=== PATIENT | female | born 1995 | race Caucasian/White ===

== ENCOUNTER 2018-04-12 11:30 | Emergency (ER) | payer MEDICAID ==
[2018-04-12 13:27] LABS: Bacteria,Urine 4+ /HPF (Negative); Bilirubin,Urine NEG (Negative); Blood,Urine NEG (Negative); Color,Urine Yellow (Yellow); Mucus,Urine FEW /HPF; Protein,Urine <15 mg/dL mg/dL (Negative); Urobilinogen,Urine < 2.0 mg/dL (<2.0)
[2018-04-12 13:29] LABS: HCG Qualitative,Urine Negative (Negative)
--- NOTE | 2018-04-12 14:25 | Emergency Department Report ---
Chief Complaint: Abdominal Pain Stated Complaint: BACK PAIN/VAGINAL PAIN Time Seen by Provider: 04/12/18 14:02 - HPI History of Present Illness: 22-year-old female presents to the emergency department with complaint of a one-week history of white thick vaginal discharge. She also has a few days of some right flank and mid back pain. She does have a history of previous kidney stones and "kidney infections" she denies any fever, nausea, vomiting. She has not taken anything for her symptoms prior presentation. She does not have a primary care physician. - ROS Review of Systems: Positive for right flank and back pain, vaginal discharge Negative for fever, nausea, vomiting - Exam Vital Signs: Vital Signs 04/12/18 11:32 Temperature 99.0 F Pulse Rate 66 Respiratory 14 Rate Blood Pressure 102/74 O2 Sat by Pulse 100 Oximetry Physical Exam: She has some right-sided CVA tenderness to palpation. Abdomen is soft and nontoxic. Heart and lung sounds are normal to auscultation. MSE screening note: Focused history and physical exam performed. Due to findings the following was ordered: I have ordered a CBC, CMP and a CT scan of the abdomen and pelvis without contrast. ED Disposition for MSE Condition: Stable Instructions: Abdominal Pain (ED) Referrals: PRIMARY CARE [Primary Care Provider] - 3-5 Days
--- NOTE | 2018-04-12 16:50 | Emergency Department Report ---
ED Female HPI - General Chief complaint: Abdominal Pain Stated complaint: BACK PAIN/VAGINAL PAIN Time Seen by Provider: 04/12/18 14:02 Source: patient Mode of arrival: Ambulatory Limitations: No Limitations - History of Present Illness Initial comments: This is a 22-year-old female presents with vaginal discharge for 2 days. Past medical history of kidney stones and kidney infections. Patient reports discharge as foul smelling and causing vaginal itching. Patient states she caught her boyfriend cheating on her and now concerned of possibly have an sexually transmitted disease. She is also complaining of right flank pain that is worse when she is carrying objects or bending over. She has not taken anything for symptom relief. She does not have a primary care physician. Denies dysuria, nausea and vomiting, vaginal bleeding, suprapubic pain, and fever. MD Complaint: vaginal discharge Onset/Timin -: days(s) Location: labia Radiation: non-radiating Severity: mild Severity scale (0 -10): 3 Improves with: none Are you Now?: No Last Menstrual Period: 03/20/18 EDC: 12/25/18 Associated Symptoms: vaginal discharge. denies: vaginal bleeding, abdominal pain, nausea/vomiting, fever/chills, headaches, loss of appetite, dysuria, hematuria, rash, seizure, shortness of breath, syncope, weakness - Related Data Sexually active: Yes : 4 Para: 4 A: 0 Home Medications Medication Instructions Recorded Confirmed Last Taken Ferrous Sulfate [Feosol] 325 mg PO QDAY 09/02/16 09/02/16 2 Days Ago ~08/31/16 Pnv,Calcium 72/Iron/Folic Acid 1 each PO DAILY 09/02/16 09/02/16 2 Days Ago [Pnv Plus Multivit Tab] ~08/31/16 Previous Rx's Medication Instructions Recorded Last Taken Type Docusate Sodium [Colace] 100 mg PO BID PRN #60 capsule 09/02/16 Unknown Rx Ferrous Sulfate [Feosol 325 MG tab] 325 mg PO BID #60 tablet 09/02/16 Unknown Rx Ibuprofen [Motrin] 800 mg PO Q8HR PRN #60 tablet 09/02/16 Unknown Rx Oxycodone HCl/Acetaminophen 1 each PO Q6HR PRN #45 tablet 09/02/16 Unknown Rx [Percocet 7.5/325 mg] metroNIDAZOLE [Metronidazole] 500 mg PO BID #14 tablet 04/12/18 Unknown Rx Allergies Allergy/AdvReac Type Severity Reaction Status Date / Time No Known Allergies Allergy Verified 08/31/16 12:25 ED Review of Systems ROS: Stated complaint: BACK PAIN/VAGINAL PAIN Other details as noted in HPI Constitutional: denies: chills, fever Respiratory: denies: cough, shortness of breath, wheezing Cardiovascular: denies: chest pain, palpitations Gastrointestinal: denies: abdominal pain, nausea, vomiting, diarrhea Genitourinary: discharge. denies: urgency, dysuria, frequency, hematuria, abnormal menses, dyspareunia Musculoskeletal: back pain (right flank pain). denies: joint swelling, arthralgia Skin: denies: rash, lesions Neurological: denies: headache, weakness, numbness, paresthesias Psychiatric: denies: anxiety, depression ED Past Medical Hx - Past Medical History Previous Medical History?: No Hx Hypertension: No Hx Congestive Heart Failure: No Hx Diabetes: No Hx Deep Vein Thrombosis: No Hx Renal Disease: No Hx Sickle Cell Disease: No Hx Seizures: No Hx Asthma: No Hx COPD: No Hx HIV: No - Surgical History Past Surgical History?: Yes Additional Surgical History: x 4 - Social History Smoking Status: Never Smoker Substance Use Type: None - Medications Home Medications: Home Medications Medication Instructions Recorded Confirmed Last Taken Type Docusate Sodium [Colace] 100 mg PO BID PRN #60 capsule 09/02/16 Unknown Rx Ferrous Sulfate [Feosol 325 MG tab] 325 mg PO BID #60 tablet 09/02/16 Unknown Rx Ferrous Sulfate [Feosol] 325 mg PO QDAY 09/02/16 09/02/16 2 Days Ago History ~08/31/16 Ibuprofen [Motrin] 800 mg PO Q8HR PRN #60 tablet 09/02/16 Unknown Rx Oxycodone HCl/Acetaminophen 1 each PO Q6HR PRN #45 tablet 09/02/16 Unknown Rx [Percocet 7.5/325 mg] Pnv,Calcium 72/Iron/Folic Acid 1 each PO DAILY 09/02/16 09/02/16 2 Days Ago History [Pnv Plus Multivit Tab] ~08/31/16 metroNIDAZOLE [Metronidazole] 500 mg PO BID #14 tablet 04/12/18 Unknown Rx ED Physical Exam - General Limitations: No Limitations General appearance: alert, in no apparent distress - Respiratory Respiratory exam: Present: normal lung sounds bilaterally. Absent: respiratory distress - Cardiovascular Cardiovascular Exam: Present: regular rate, normal rhythm. Absent: systolic murmur, diastolic murmur, rubs, gallop - GI/Abdominal GI/Abdominal exam: Present: soft, normal bowel sounds. Absent: organomegaly, mass - External exam: Present: normal external exam Speculum exam: Present: vaginal discharge (wrist white thin discharge). Absent : erythema, cervical discharge, vaginal bleeding, foreign body, tissue Bi-manual exam: Present: normal bi-manual exam - Back Exam Back exam: Present: full ROM, CVA tenderness (R). Absent: CVA tenderness (L), muscle spasm, paraspinal tenderness, vertebral tenderness, rash noted - Neurological Exam Neurological exam: Present: alert, oriented X3 - Psychiatric Psychiatric exam: Present: normal affect, normal mood - Skin Skin exam: Present: warm, dry, intact, normal color. Absent: rash ED Course Vital Signs 04/12/18 04/12/18 11:32 18:00 Temperature 99.0 F 98.2 F Pulse Rate 66 74 Respiratory 14 18 Rate Blood Pressure 102/74 Blood Pressure 124/72 [Right] O2 Sat by Pulse 100 98 Oximetry ED Medical Decision Making - Lab Data Result diagrams: 04/12/18 17:15 04/12/18 17:15 - Radiology Data Radiology results: report reviewed EXAM: CT ABDOMEN PELVIS WO CON HISTORY: right flank pain TECHNIQUE: Axial helical imaging through the abdomen and pelvis with sagittal and coronal reformatted images obtained. Comparison: None FINDINGS: The lung bases are without infiltrate, pneumothorax or pleural fluid collection. The heart is normal size. The liver, spleen, pancreas and gallbladder are unremarkable in appearance. There is a punctate nonobstructing stone in the left renal pelvis. There is no evidence of hydronephrosis nor hydroureter. The bowel is normal caliber. The appendix is normal in appearance. There is a small amount of free fluid in the pelvis. The Hounsfield units are nonspecific in appearance. There is no evidence of pneumoperitoneum. The abdominal aorta is normal caliber. There is no evidence of pathologic intra-abdominal adenopathy by CT size criteria. The urinary bladder is decompressed which limits evaluation. An intrauterine device is demonstrated in the uterus. The device is position in unusual orientation and directed predominantly laterally rather than cranial caudally. There is a low-attenuation approximately 4 centimeter rounded structure in the right adnexa. Possible ovarian cyst. The bony structures are unremarkable in appearance. There is evidence of a previous Pfannenstiel type incision. IMPRESSION: 1. Punctate nonobstructing stone left renal pelvis. No evidence of hydronephrosis nor hydroureter. 2. Approximately 4 centimeter rounded structure low-attenuation in the right adnexa. Possible ovarian cyst. Pelvic ultrasound may be helpful for further evaluation. 3. Small amount of free fluid in the pelvis. In the proper clinical setting a ruptured ovarian cyst would need to be considered. 4. Intrauterine device within the uterus with an unusual orientation and is positioned laterally. 5. Evidence of previous Pfannenstiel type incision. - Medical Decision Making This is a 22-year-old female who presents with vaginal discharge and right flank pain for 2 days. Patient was examined by me. Vitals are stable and in no acute distress. CBC, CMP, urine hCG, urinalysis, CT of abdomen and obtained. Wet prep and gonorrhea and chlamydia obtained via pelvic exam. Patient is to follow-up in 2-5 days for results of gonorrhea and chlamydia which are pending. Wet prep positive for occlusive illness, negative Trichomonas and yeast. All other labs are unremarkable. CT of abdomen dictated by radiologist. 1. Punctate nonobstructing stone left renal pelvis. No evidence of hydronephrosis nor hydroureter. 2. Approximately 4 centimeter rounded structure low-attenuation in the right adnexa. Possible ovarian cyst. Pelvic ultrasound may be helpful for further evaluation. 3. Small amount of free fluid in the pelvis. In the proper clinical setting a ruptured ovarian cyst would need to be considered. 4. Intrauterine device within the uterus with an unusual orientation and is positioned laterally. 5. Evidence of previous Pfannenstiel type incision. Patient informed of results. Empirically treated with Rocephin 250 mg IM and azithromycin 1 g by mouth for STD exposure. Referral to urology for management of nonobstructing renal stones. Encouraged to increase fluid intake and strain urine. Start metronidazole 500 milligrams by mouth twice a day 7 days for bacterial vaginitis. Discharged home in stable condition. Discussed prevention options. F/U with PCP or Health Department. Critical care attestation.: If time is entered above; I have spent that time in minutes in the direct care of this critically ill patient, excluding procedure time. ED Disposition Clinical Impression: Vaginal discharge, Right flank pain, Exposure to STD, Renal calculus, left Disposition: DC- TO HOME OR SELFCARE Is pt being admited?: No Does the pt Need Aspirin: No Condition: Stable Instructions: Sexually Transmitted Diseases (ED), Safe Sex (ED), Abdominal Pain (ED) Additional Instructions: Avoid drinking alcohol while taking antibiotics and for 24 hours after completion. Continue safe sexual intercourse. Follow up with Primary Care Provider or health department. Prescriptions: metroNIDAZOLE [Metronidazole] 500 mg PO BID #14 tablet Referrals: [facility] [Outside] - 3-5 Days [facility] [Outside] - 3-5 Days [facility] [Outside] - 3-5 Days [facility] [Provider Group] - 3-5 Days Forms: Work/School Release Form(ED) Time of Disposition: 17:47 Print Language: UKRAINIAN
--- NOTE | 2018-04-12 17:13 | Cat Scan Report ---
FINAL REPORT EXAM: CT ABDOMEN PELVIS WO CON HISTORY: right flank pain TECHNIQUE: Axial helical imaging through the abdomen and pelvis with sagittal and coronal reformatted images obtained. Comparison: None FINDINGS: The lung bases are without infiltrate, pneumothorax or pleural fluid collection. The heart is normal size. The liver, spleen, pancreas and gallbladder are unremarkable in appearance. There is a punctate nonobstructing stone in the left renal pelvis. There is no evidence of hydronephrosis nor hydroureter. The bowel is normal caliber. The appendix is normal in appearance. There is a small amount of free fluid in the pelvis. The Hounsfield units are nonspecific in appearance. There is no evidence of pneumoperitoneum. The abdominal aorta is normal caliber. There is no evidence of pathologic intra-abdominal adenopathy by CT size criteria. The urinary bladder is decompressed which limits evaluation. An intrauterine device is demonstrated in the uterus. The device is position in unusual orientation and directed predominantly laterally rather than cranial caudally. There is a low-attenuation approximately 4 centimeter rounded structure in the right adnexa. Possible ovarian cyst. The bony structures are unremarkable in appearance. There is evidence of a previous Pfannenstiel type incision. IMPRESSION: 1. Punctate nonobstructing stone left renal pelvis. No evidence of hydronephrosis nor hydroureter. 2. Approximately 4 centimeter rounded structure low-attenuation in the right adnexa. Possible ovarian cyst. Pelvic ultrasound may be helpful for further evaluation. 3. Small amount of free fluid in the pelvis. In the proper clinical setting a ruptured ovarian cyst would need to be considered. 4. Intrauterine device within the uterus with an unusual orientation and is positioned laterally. 5. Evidence of previous Pfannenstiel type incision.
[2018-04-12] MEDS ORDERED: ROCEPHIN IM ONE (17:45)
[2018-04-12] MEDS ORDERED: XYLOCAINE 1% MPF 5 mL INFILTRATI ONE (17:45)
[2018-04-12] MEDS ORDERED: ZITHROMAX PO ONE (17:45)
[2018-04-12 18:02] VITALS: BP 124/72
[2018-04-12 18:11] LABS: Alanine Aminotransferase 10 units/L (7-56); Albumin 4.7 g/dL (3.9-5); BUN/Creatinine Ratio 18; Blood Urea Nitrogen 7 mg/dL (7-17); Calcium 9.5 mg/dL (8.4-10.2); Hemolysis Index 46
[2018-04-12 18:32] LABS: Hematocrit 38.9 % (30.3-42.9); Mean Corpuscular HGB Conc 33 % (30-34); Mean Corpuscular Hemoglobin 29 pg (28-32); Mean Corpuscular Volume 86 fl (79-97); Platelet Count 283 K/mm3 (140-440); Red Blood Count 4.51 M/mm3 (3.65-5.03); Red Cell Distribution Width 15.5 % (13.2-15.2)
== END 2018-04-12 18:00 | disposition home or self-care (01) ==
LOC: ED 11:30
DX: N20.0 Calculus of kidney (principal); N89.8 Other specified noninflammatory disorders of vagina
CPT/HCPCS: 36415; 74176; 80053; 81001; 81025; 85025; 87210; 87591; 99284

== ENCOUNTER 2018-05-06 18:22 | Emergency (ER) | payer MEDICAID ==
[2018-05-06 18:33] VITALS: BP 113/76
[2018-05-06] MEDS ORDERED: TYLENOL PO ONE (20:47)
[2018-05-06] MEDS ORDERED: THERMAZENE 50 GRAM TP ONE ×2 (20:47→20:52)
[2018-05-06] MEDS ORDERED: TYLENOL ONE (20:49)
[2018-05-06] MEDS ORDERED: BOOSTRIX IM ONE ×2 (20:53→20:57)
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
== END 2018-05-06 22:50 | disposition home or self-care (01) ==
LOC: ED 18:22
DX: T23.211A Burn of second degree of right thumb (nail), initial encounter (principal); X10.2XXA Contact with fats and cooking oils, initial encounter; Y93.89 Activity, other specified; Y92.89 Other specified places as the place of occurrence of the external cause; Y99.8 Other external cause status
CPT/HCPCS: 90471; 90715

== ENCOUNTER 2019-05-31 08:26 | Emergency (ER) | payer MEDICAID ==
[2019-05-31 09:26] LABS: Basophils # (Auto) 0.1 K/mm3 (0.0-0.1); Basophils % (Auto) 0.8 % (0.0-1.8); Eosinophils # (Auto) 0.1 K/mm3 (0.0-0.4); Eosinophils % (Auto) 0.7 % (0.0-4.3); Hematocrit 38.6 % (30.3-42.9); Hemoglobin 12.6 gm/dl (10.1-14.3); Lymphocytes # (Auto) 1.7 K/mm3 (1.2-5.4); Lymphocytes % (Auto) 20.2 % (13.4-35.0); Mean Corpuscular HGB Conc 33 % (30-34); Mean Corpuscular Volume 87 fl (79-97); Monocytes # (Auto) 0.6 K/mm3 (0.0-0.8); Monocytes % (Auto) 7.7 % (0.0-7.3); Platelet Count 282 K/mm3 (140-440); Red Blood Count 4.45 M/mm3 (3.65-5.03); Red Cell Distribution Width 16.4 % (13.2-15.2)
[2019-05-31 09:36] LABS: Bacteria,Urine 2+ /HPF (Negative); Bilirubin,Urine NEG (Negative); Blood,Urine SM (Negative); Color,Urine Yellow (Yellow); Mucus,Urine FEW /HPF; Urobilinogen,Urine < 2.0 mg/dL (<2.0)
[2019-05-31 09:37] LABS: WBC,Urine > 182.0 /HPF (0.0-6.0)
[2019-05-31 09:42] LABS: BUN/Creatinine Ratio 24; Blood Urea Nitrogen 12 mg/dL (7-17); Calcium 9.3 mg/dL (8.4-10.2); Hemolysis Index 7
[2019-05-31 09:44] LABS: HCG Qualitative,Urine Negative (Negative)
--- NOTE | 2019-05-31 09:53 | Emergency Department Report ---
HPI - General Chief Complaint: Vaginal Bleeding Time Seen by Provider: 05/31/19 08:57 - HPI HPI: 23-year-old female presents to the emergency department with a complaint of a 2-3 week history of vaginal bleeding that goes between being moderate to heavy amounts. It is associated with nausea, dysuria. She denies any fever, vaginal discharge. The patient has an IUD in place but does not know what type and says that she otherwise has normal regular menstrual cycles. She has an [facility]PER[facility]OR through [place] who she has not seen regarding her symptoms or for about the past year. She otherwise denies any past medical history. She took one dose of AZO for her symptoms without any relief. No recent travel or sick contacts at home. ED Past Medical Hx - Past Medical History Previous Medical History?: No Hx Hypertension: No Hx Congestive Heart Failure: No Hx Diabetes: No Hx Deep Vein Thrombosis: No Hx Renal Disease: No Hx Sickle Cell Disease: No Hx Seizures: No Hx Asthma: No Hx COPD: No Hx HIV: No - Surgical History Past Surgical History?: No Additional Surgical History: x 4 - Social History Smoking Status: Never Smoker Substance Use Type: None - Medications Home Medications: Home Medications Medication Instructions Recorded Confirmed Last Taken Type Docusate Sodium [Colace] 100 mg PO BID PRN #60 capsule 09/02/16 Unknown Rx Ferrous Sulfate [Feosol 325 MG tab] 325 mg PO BID #60 tablet 09/02/16 Unknown Rx Ferrous Sulfate [Feosol] 325 mg PO QDAY 09/02/16 09/02/16 2 Days Ago History ~08/31/16 Ibuprofen [Motrin] 800 mg PO Q8HR PRN #60 tablet 09/02/16 Unknown Rx Oxycodone HCl/Acetaminophen 1 each PO Q6HR PRN #45 tablet 09/02/16 Unknown Rx [Percocet 7.5/325 mg] Pnv,Calcium 72/Iron/Folic Acid 1 each PO DAILY 09/02/16 09/02/16 2 Days Ago History [Pnv Plus Multivit Tab] ~08/31/16 metroNIDAZOLE [Metronidazole] 500 mg PO BID #14 tablet 04/12/18 Unknown Rx Cephalexin [Keflex] 500 mg PO TID #30 capsule 05/06/18 Unknown Rx SILVER sulfADIAZINE 50 GRAM 1 applicatio TP BID #1 tube 05/06/18 Unknown Rx [Thermazene 50 Gram] traMADol [Ultram] 50 mg PO Q6HR PRN #12 tablet 05/06/18 Unknown Rx cephALEXin [Keflex] 500 mg PO Q8HR #21 cap 05/31/19 Unknown Rx ED Review of Systems ROS: Stated complaint: VAGINAL BLEEDING 2WKS/PAIN Other details as noted in HPI Comment: All other systems reviewed and negative Constitutional: denies: chills, fever Gastrointestinal: nausea. denies: abdominal pain, vomiting Genitourinary: dysuria, abnormal menses. denies: discharge Musculoskeletal: back pain. denies: joint swelling Neurological: denies: numbness, paresthesias Physical Exam - Physical Exam Vital Signs: Vital Signs 05/31/19 08:54 Temperature 98 F Pulse Rate 63 Respiratory 16 Rate Blood Pressure 108/56 [Left] O2 Sat by Pulse 100 Oximetry Physical Exam: GENERAL: The patient is well-developed well-nourished. HENT: Normocephalic. Atraumatic. Patient has moist mucous membranes. EYES: Extraocular motions are intact. NECK: Supple. Trachea is midline. CHEST/LUNGS: Clear to auscultation. There is no respiratory distress noted. HEART/CARDIOVASCULAR: Regular. There is no tachycardia. There is no murmur. ABDOMEN: Abdomen is soft, nontender. Patient has normal bowel sounds. There is no abdominal distention. SKIN: Skin is warm and dry. NEURO: The patient is awake, alert, and oriented. The patient is cooperative. The patient has no focal neurologic deficits. Normal speech. MUSCULOSKELETAL: There is no tenderness or deformity. There is no limitation range of motion. There is no evidence of acute injury. ED Course Vital Signs 05/31/19 08:54 Temperature 98 F Pulse Rate 63 Respiratory 16 Rate Blood Pressure 108/56 [Left] O2 Sat by Pulse 100 Oximetry ED Medical Decision Making - Lab Data Result diagrams: 05/31/19 09:11 05/31/19 09:11 - Radiology Data Radiology results: report reviewed Pelvic ultrasound complete INDICATION: Pelvic pain for 3 weeks, abnormal vaginal bleeding Comparison: CT scan dated 04/12/2018 Findings: Uterus measures 5 cm in length and is anteflexed. The endometrial stripe measures 4 mm. There is an IUD within the endometrial cavity. The right ovary measures 1.7 cm and the left ovary measures 2.1 cm. Arterial flow is noted in the ovaries. There is no free fluid. There are no adnexal masses. IMPRESSION: Pelvic ultrasound is within normal limits. - Medical Decision Making Patient presents with a 2 to three-week history of vaginal bleeding and some pelvic pain. Labs are mostly unremarkable except for a urinalysis that shows a significant urinary tract infection. Vital signs stable including being afebrile. Started on antibiotics. Transvaginal ultrasound does not show any fi broids, malignancy, torsion, or any other acute process. Patient will be discharged home to follow up with [facility] regarding dysfunctional uterine bleeding and/or menorrhagia. She will return to the ER with any worsening of her symptoms or any acute distress. - Differential Diagnosis dysfunctional uterine bleeding, fibroids, UTI, , malignancy Critical Care Time: No Critical care attestation.: If time is entered above; I have spent that time in minutes in the direct care of this critically ill patient, excluding procedure time. ED Disposition Clinical Impression: Dysfunctional uterine bleeding UTI (urinary tract infection) Qualifiers: Urinary tract infection type: acute cystitis Hematuria presence: with hematuria Qualified Code(s): N30.01 - Acute cystitis with hematuria Disposition: DC- TO HOME OR SELFCARE Is pt being admited?: No Condition: Stable Instructions: Dysfunctional Uterine Bleeding (ED), Urinary Tract Infection in Women (ED), Menorrhagia (ED) Additional Instructions: Please follow-up with an SLOT SUPERVISOR in the next few days. Take the antibiotics as prescribed. Return to the emergency Department with any worsening of your symptoms or any acute distress. Prescriptions: cephALEXin [Keflex] 500 mg PO Q8HR #21 cap Referrals: [facility] [Provider Group] - 2-3 Days [facility] [Provider Group] - 2-3 Days Time of Disposition: 14:28
[2019-05-31] MEDS ORDERED: cephALEXin 500 MG CAP PO ONE (09:55)
--- NOTE | 2019-05-31 11:28 | Ultrasound Report ---
Pelvic ultrasound complete INDICATION: Pelvic pain for 3 weeks, abnormal vaginal bleeding Comparison: CT scan dated 04/12/2018 Findings: Uterus measures 5 cm in length and is anteflexed. The endometrial stripe measures 4 mm. There is an I UD within the endometrial cavity. The right ovary measures 1.7 cm and the left ovary measures 2.1 cm. Arterial flow is noted in the ovaries. There is no free fluid. There are no adnexal masses. IMPRESSION: Pelvic ultrasound is within normal limits. Signer Name: Fransico Hollis MD Signed: 05/31/2019 11:23 AM Workstation Name: [id number]
[2019-05-31 12:18] VITALS: BP 102/50
== END 2019-05-31 12:19 | disposition home or self-care (01) ==
LOC: ED 08:26
DX: N93.8 Other specified abnormal uterine and vaginal bleeding (principal); N39.0 Urinary tract infection, site not specified; Z79.1 Long term (current) use of non-steroidal anti-inflammatories (NSAID); Z79.899 Other long term (current) drug therapy
CPT/HCPCS: 36415; 80048; 81001; 81025; 85025; 93975; 99284

== ENCOUNTER 2021-02-03 14:56 | Emergency (ER) | payer MEDICAID ==
[2021-02-03 15:13] VITALS: BP 123/47
--- NOTE | 2021-02-03 15:20 | Event Note ---
ED Screening Note Date of service: 02/03/21 Time: 15:19 ED Screening Note: 25-year-old female patient (A1; LMP 12/23/2020) with history of kidney stones and pyelonephritis presents to the emergency department with complaints of lower abdominal pain and lower back pain for 2 weeks, worsening today. No preceding fall, trauma, or injury. Patient has not taken a test since her last menstrual cycle. No associated fever or vomiting. No vaginal bleeding. General: Awake, appropriately interactive, no acute distress. Neck: Supple. Full range of motion intact. Cardiovascular: Normal peripheral perfusion. Pulmonary: No respiratory distress. Patient is speaking normally without use of accessory muscles. Skin: No apparent rashes or lesions. Neurological: No facial asymmetry. Speech is clear. Follows commands. Patient is alert and oriented. Musculoskeletal: Moves all four extremities spontaneously with normal range of motion. Psych: Cooperative. Appropriate mood and affect. I have greeted and performed a focused rapid initial assessment of this patient. A comprehensive ED assessment and evaluation of the patient, analysis of all test results, and completion of the medical decision-making process will be conducted by additional ED providers. This initial assessment/diagnostic orders/clinical plan/treatment(s) is/are subject to change based on patients health status, clinical progression and re-assessment. Further treatment and workup at subsequent clinical provider's discretion. Patient/guardian urged not to elope from the ED as their condition may be serious if not clinically assessed and managed.
[2021-02-03 16:03] LABS: Basophils # (Auto) 0.1 K/mm3 (0.0-0.1); Basophils % (Auto) 0.8 % (0.0-1.8); Eosinophils # (Auto) 0.1 K/mm3 (0.0-0.4); Eosinophils % (Auto) 0.6 % (0.0-4.3); Hematocrit 35.6 % (30.3-42.9); Hemoglobin 12.1 gm/dl (10.1-14.3); Lymphocytes # (Auto) 2.1 K/mm3 (1.2-5.4); Lymphocytes % (Auto) 23.6 % (13.4-35.0); Mean Corpuscular HGB Conc 34 % (30-34); Mean Corpuscular Volume 92 fl (79-97); Monocytes # (Auto) 0.9 K/mm3 (0.0-0.8); Monocytes % (Auto) 10.5 % (0.0-7.3); Platelet Count 278 K/mm3 (140-440); Red Blood Count 3.88 M/mm3 (3.65-5.03); Red Cell Distribution Width 14.3 % (13.2-15.2)
--- NOTE | 2021-02-03 16:11 | Emergency Department Report ---
ED General Adult HPI - General Chief complaint: Abdominal Pain Stated complaint: ABD PAIN, BACK PAIN Time Seen by Provider: 02/03/21 16:03 Source: patient Mode of arrival: Ambulatory Limitations: No Limitations - History of Present Illness Initial comments: Patient is a 25-year-old female presents emergency room with complaints of lower abdominal discomfort and lower back pain that began 2 weeks ago. She states that she has had some urinary frequency and occasionally her urine has an odor. She denies any fever, nausea, vomiting, diarrhea, dysuria, abnormal vaginal discharge, vaginal bleeding, pelvic pain. She states that she is having normal bowel movements. Patient denies any past medical history. She states that she has a past surgical history of x4. Last menstrual cycle December 23, she states that she is concerned that she may be but has not taken a test. - Related Data Home Medications Medication Instructions Recorded Confirmed Last Taken Ferrous Sulfate [Feosol] 325 mg PO QDAY 09/02/16 09/02/16 2 Days Ago ~08/31/16 Pnv,Calcium 72/Iron/Folic Acid 1 each PO DAILY 09/02/16 09/02/16 2 Days Ago [Pnv Plus Multivit Tab] ~08/31/16 Previous Rx's Medication Instructions Recorded Last Taken Type Docusate Sodium [Colace] 100 mg PO BID PRN #60 capsule 09/02/16 Unknown Rx Ferrous Sulfate [Feosol 325 MG tab] 325 mg PO BID #60 tablet 09/02/16 Unknown Rx Ibuprofen [Motrin] 800 mg PO Q8HR PRN #60 tablet 09/02/16 Unknown Rx Oxycodone HCl/Acetaminophen 1 each PO Q6HR PRN #45 tablet 09/02/16 Unknown Rx [Percocet 7.5/325 mg] metroNIDAZOLE [Metronidazole] 500 mg PO BID #14 tablet 04/12/18 Unknown Rx SILVER sulfADIAZINE 50 GRAM 1 applicatio TP BID #1 tube 05/06/18 Unknown Rx [Thermazene 50 Gram] cephALEXin [Keflex] 500 mg PO TID #30 capsule 05/06/18 Unknown Rx traMADoL [Ultram] 50 mg PO Q6HR PRN #12 tablet 05/06/18 Unknown Rx cephALEXin [Keflex] 500 mg PO Q8HR #21 cap 05/31/19 Unknown Rx Acetaminophen [Tylenol] 650 mg PO Q8HR PRN #20 capsule 02/03/21 Unknown Rx cephALEXin [Keflex] 500 mg PO BID 7 Days #14 cap 02/03/21 Unknown Rx Allergies Allergy/AdvReac Type Severity Reaction Status Date / Time No Known Allergies Allergy Verified 08/31/16 12:25 ED Review of Systems ROS: Stated complaint: ABD PAIN, BACK PAIN Other details as noted in HPI Comment: All other systems reviewed and negative ED Past Medical Hx - Past Medical History Hx Hypertension: No Hx Congestive Heart Failure: No Hx Diabetes: No Hx Deep Vein Thrombosis: No Hx Renal Disease: No Hx Sickle Cell Disease: No Hx Seizures: No Hx Asthma: No Hx COPD: No Hx HIV: No - Surgical History Additional Surgical History: x 4 - Social History Smoking Status: Never Smoker Substance Use Type: None - Medications Home Medications: Home Medications Medication Instructions Recorded Confirmed Last Taken Type Docusate Sodium [Colace] 100 mg PO BID PRN #60 capsule 09/02/16 Unknown Rx Ferrous Sulfate [Feosol 325 MG tab] 325 mg PO BID #60 tablet 09/02/16 Unknown Rx Ferrous Sulfate [Feosol] 325 mg PO QDAY 09/02/16 09/02/16 2 Days Ago History ~08/31/16 Ibuprofen [Motrin] 800 mg PO Q8HR PRN #60 tablet 09/02/16 Unknown Rx Oxycodone HCl/Acetaminophen 1 each PO Q6HR PRN #45 tablet 09/02/16 Unknown Rx [Percocet 7.5/325 mg] Pnv,Calcium 72/Iron/Folic Acid 1 each PO DAILY 09/02/16 09/02/16 2 Days Ago History [Pnv Plus Multivit Tab] ~08/31/16 metroNIDAZOLE [Metronidazole] 500 mg PO BID #14 tablet 04/12/18 Unknown Rx SILVER sulfADIAZINE 50 GRAM 1 applicatio TP BID #1 tube 05/06/18 Unknown Rx [Thermazene 50 Gram] cephALEXin [Keflex] 500 mg PO TID #30 capsule 05/06/18 Unknown Rx traMADoL [Ultram] 50 mg PO Q6HR PRN #12 tablet 05/06/18 Unknown Rx cephALEXin [Keflex] 500 mg PO Q8HR #21 cap 05/31/19 Unknown Rx Acetaminophen [Tylenol] 650 mg PO Q8HR PRN #20 capsule 02/03/21 Unknown Rx cephALEXin [Keflex] 500 mg PO BID 7 Days #14 cap 02/03/21 Unknown Rx ED Physical Exam - General Limitations: No Limitations General appearance: alert, in no apparent distress - Head Head exam: Present: atraumatic, normocephalic - Eye Eye exam: Present: normal appearance - ENT ENT exam: Present: mucous membranes moist - Respiratory Respiratory exam: Present: normal lung sounds bilaterally. Absent: respiratory distress, wheezes, rales, rhonchi, stridor, chest wall tenderness, accessory muscle use, decreased breath sounds, prolonged expiratory - Cardiovascular Cardiovascular Exam: Present: regular rate, normal rhythm, normal heart sounds. Absent: systolic murmur, diastolic murmur, rubs, gallop - GI/Abdominal GI/Abdominal exam: Present: soft, tenderness (mild suprapubic), normal bowel sounds. Absent: distended, guarding, rebound, rigid - Neurological Exam Neurological exam: Present: alert, oriented X3 - Psychiatric Psychiatric exam: Present: normal affect, normal mood - Skin Skin exam: Present: warm, dry, intact ED Course Vital Signs 02/03/21 15:13 Temperature 98.4 F Pulse Rate 71 Respiratory 18 Rate Blood Pressure 123/47 O2 Sat by Pulse 99 Oximetry ED Medical Decision Making - Lab Data Result diagrams: 02/03/21 15:26 02/03/21 15:26 Lab Results 02/03/21 02/03/21 02/03/21 Range/Units 15:26 15:26 15:26 WBC 9.0 (4.5-11.0) K/mm3 RBC 3.88 (3.65-5.03) M/mm3 Hgb 12.1 (10.1-14.3) gm/dl Hct 35.6 (30.3-42.9) % MCV 92 (79-97) fl MCH 31 (28-32) pg MCHC 34 (30-34) % RDW 14.3 (13.2-15.2) % Plt Count 278 (140-440) K/mm3 Lymph % (Auto) 23.6 (13.4-35.0) % [place] % (Auto) 10.5 H (0.0-7.3) % Eos % (Auto) 0.6 (0.0-4.3) % Baso % (Auto) 0.8 (0.0-1.8) % Lymph # (Auto) 2.1 (1.2-5.4) K/mm3 [place] # (Auto) 0.9 H (0.0-0.8) K/mm3 Eos # (Auto) 0.1 (0.0-0.4) K/mm3 Baso # (Auto) 0.1 (0.0-0.1) K/mm3 Seg Neutrophils % 64.5 (40.0-70.0) % Seg Neutrophils # 5.8 (1.8-7.7) K/mm3 Sodium 139 (137-145) mmol/L Potassium 3.7 (3.6-5.0) mmol/L Chloride 102.2 (98-107) mmol/L Carbon Dioxide 26 (22-30) mmol/L Anion Gap 15 mmol/L BUN 9 (7-17) mg/dL Creatinine 0.5 L (0.6-1.2) mg/dL Estimated GFR > 60 ml/min BUN/Creatinine Ratio 18 % Glucose 60 L (65-100) mg/dL Calcium 8.7 (8.4-10.2) mg/dL Total Bilirubin 0.40 (0.1-1.2) mg/dL AST 24 (5-40) units/L ALT 27 (7-56) units/L Alkaline Phosphatase 61 (35-129) units/L Total Protein 7.1 (6.3-8.2) g/dL Albumin 4.4 (3.9-5) g/dL Albumin/Globulin Ratio 1.6 % Lipase 35 (13-60) units/L HCG, Quant 1654 H (0-4) mIU/mL Urine Color (Yellow) Urine Turbidity (Clear) Urine pH (5.0-7.0) Ur Specific [place] (1.003-1.030) Urine Protein (Negative) mg/dL Urine Glucose (UA) (Negative) mg/dL Urine Ketones (Negative) mg/dL Urine Blood (Negative) Urine Nitrite (Negative) Urine Bilirubin (Negative) Urine Urobilinogen (<2.0) mg/dL Ur Leukocyte Esterase (Negative) Urine WBC (Auto) (0.0-6.0) /HPF Urine RBC (Auto) (0.0-6.0) /HPF U Epithel Cells (Auto) (0-13.0) /HPF Urine Bacteria (Auto) (Negative) /HPF Urine Mucus /HPF 02/03/21 Range/Units 15:49 WBC (4.5-11.0) K/mm3 RBC (3.65-5.03) M/mm3 Hgb (10.1-14.3) gm/dl Hct (30.3-42.9) % MCV (79-97) fl MCH (28-32) pg MCHC (30-34) % RDW (13.2-15.2) % Plt Count (140-440) K/mm3 Lymph % (Auto) (13.4-35.0) % [place] % (Auto) (0.0-7.3) % Eos % (Auto) (0.0-4.3) % Baso % (Auto) (0.0-1.8) % Lymph # (Auto) (1.2-5.4) K/mm3 [place] # (Auto) (0.0-0.8) K/mm3 Eos # (Auto) (0.0-0.4) K/mm3 Baso # (Auto) (0.0-0.1) K/mm3 Seg Neutrophils % (40.0-70.0) % Seg Neutrophils # (1.8-7.7) K/mm3 Sodium (137-145) mmol/L Potassium (3.6-5.0) mmol/L Chloride (98-107) mmol/L Carbon Dioxide (22-30) mmol/L Anion Gap mmol/L BUN (7-17) mg/dL Creatinine (0.6-1.2) mg/dL Estimated GFR ml/min BUN/Creatinine Ratio % Glucose (65-100) mg/dL Calcium (8.4-10.2) mg/dL Total Bilirubin (0.1-1.2) mg/dL AST (5-40) units/L ALT (7-56) units/L Alkaline Phosphatase (35-129) units/L Total Protein (6.3-8.2) g/dL Albumin (3.9-5) g/dL Albumin/Globulin Ratio % Lipase (13-60) units/L HCG, Quant (0-4) mIU/mL Urine Color Yellow (Yellow) Urine Turbidity Slightly-cloudy (Clear) Urine pH 6.0 (5.0-7.0) Ur Specific [place] 1.023 (1.003-1.030) Urine Protein <15 mg/dl (Negative) mg/dL Urine Glucose (UA) Neg (Negative) mg/dL Urine Ketones Neg (Negative) mg/dL Urine Blood Neg (Negative) Urine Nitrite Pos (Negative) Urine Bilirubin Neg (Negative) Urine Urobilinogen 2.0 (<2.0) mg/dL Ur Leukocyte Esterase Tr (Negative) Urine WBC (Auto) 11.0 H (0.0-6.0) /HPF Urine RBC (Auto) 2.0 (0.0-6.0) /HPF U Epithel Cells (Auto) 6.0 (0-13.0) /HPF Urine Bacteria (Auto) 1+ (Negative) /HPF Urine Mucus 3+ /HPF - Radiology Data Radiology results: report reviewed Ordering Physician: DERICK CERVANTES Date of Service: 02/03/21 Procedure(s): US OB transvaginal Accession Number(s): [id number] cc: DERICK CERVANTES ULTRASOUND OBSTETRIC INDICATION / CLINICAL INFORMATION: , abd pain. Clinical Gestational Age (GA): 6.0 weeks.days TECHNIQUE: Transabdominal and Transvaginal. COMPARISON: None available. FINDINGS: UTERUS: Mildly enlarged with a 3-4 mm cystic intrauterine focus possibly representing a gestational sac. Ultrasound age would correspond to 5 weeks and 1 day. No structures are able to be visualized within this sac. EMBRYO/FETUS: Not visualized at this time. ADNEXA: 1.4 cm cystic focus at the right ovary possibly representing a corpus luteum cyst. Left adnexa demonstrates no significant abnormality. FREE FLUID: None. ADDITIONAL FINDINGS: None. IMPRESSION: 1. 3-4 mm cystic intrauterine focus possibly representing a gestational sac. Recommend correlation with serial beta hCG and short-term follow-up ultrasound in 7-14 days for further evaluation. Signer Name: Isac Carnes MD Signed: 02/03/2021 6:17 PM Workstation Name: [id number] Transcribed By: Dictated By: ISAC CARNES III Electronically Authenticated By: ISAC CARNES III Signed Date/Time: 02/03/211816 DD/ 09 TD/TT: - Medical Decision Making Patient is a 25-year-old female presents emergency room with complaints of lower abdominal discomfort and lower back pain that began 2 weeks ago. She states that she has had some urinary frequency and occasionally her urine has an odor. She denies any fever, nausea, vomiting, diarrhea, dysuria, abnormal vaginal discharge, vaginal bleeding, pelvic pain. She states that she is having normal bowel movements. Patient denies any past medical history. She states that she has a past surgical history of x4. Last menstrual cycle December 23, she states that she is concerned that she may be but has not taken a test. vitals are normal. on exam: mild suprapubic abd ttp, no guarding, no rebound, no rigidity, no peritoneal signs. glucose mildly low at 60, discussed with pt and advised to eat. hcg quant 1654. UA with mild UTI. US OB: 1. 3-4 mm cystic intrauterine focus possibly representing a gestational sac. Recommend correlation with serial beta hCG and short-term follow-up ultrasound in 7-14 days for further evaluation. discussed all results with pt. discussed the impo rtance of [facility] follow up. pt given prescription for keflex and tylenol. advised pt Please take medication as prescribed. Increase your water intake. Take a time over the counter. Follow-up with [facility]. You will need to have a repeat hCG quant and ultrasound by her [facility]. Return to emergency room for new or worsening symptoms. Critical care attestation.: If time is entered above; I have spent that time in minutes in the direct care of this critically ill patient, excluding procedure time. ED Disposition Clinical Impression: Lower abdominal pain, Elevated serum hCG Low back pain Qualifiers: Chronicity: acute Back pain laterality: unspecified Sciatica presence: without sciatica Qualified Code(s): M54.5 - Low back pain UTI (urinary tract infection) Qualifiers: Urinary tract infection type: acute cystitis Hematuria presence: without hematuria Qualified Code(s): N30.00 - Acute cystitis without hematuria Disposition: TO HOME OR SELFCARE Is pt being admited?: No Does the pt Need Aspirin: No Condition: Stable Instructions: First Trimester of , [id number], Urinary Tract Infection, Adult, [id number], Abdominal Pain (ED) Additional Instructions: Please take medication as prescribed. Increase your water intake. Take a time over the counter. Follow-up with [facility]. You will need to have a repeat hCG quant and ultrasound by her [facility]. Return to emergency room for new or worsening symptoms. Prescriptions: cephALEXin [Keflex] 500 mg PO BID 7 Days #14 cap Acetaminophen [Tylenol] 650 mg PO Q8HR PRN #20 capsule PRN Reason: pain Referrals: [facility] [Provider Group] - 2-3 Days Time of Disposition: 18:32 Print Language: TAMAZIGHT
[2021-02-03 16:19] LABS: Bacteria,Urine 1+ /HPF (Negative); Bilirubin,Urine NEG (Negative); Blood,Urine NEG (Negative); Color,Urine Yellow (Yellow); Mucus,Urine 3+ /HPF; Protein,Urine <15 mg/dL mg/dL (Negative)
[2021-02-03 16:32] LABS: Alanine Aminotransferase 27 units/L (7-56); Albumin 4.4 g/dL (3.9-5); BUN/Creatinine Ratio 18; Blood Urea Nitrogen 9 mg/dL (7-17); Calcium 8.7 mg/dL (8.4-10.2); Hemolysis Index 5
--- NOTE | 2021-02-03 18:21 | Ultrasound Report ---
ULTRASOUND OBSTETRIC INDICATION / CLINICAL INFORMATION: , abd pain. Clinical Gestational Age (GA): 6.0 weeks.days TECHNIQUE: Transabdominal and Transvaginal. COMPARISON: None available. FINDINGS: UTERUS: Mildly enlarged with a 3-4 mm cystic intrauterine focus possibly representing a gestational s ac. Ultrasound age would correspond to 5 weeks and 1 day. No structures are able to be visualized wit hin this sac. EMBRYO/FETUS: Not visualized at this time. ADNEXA: 1.4 cm cystic focus at the right ovary possibly representing a corpus luteum cyst. Left adnex a demonstrates no significant abnormality. FREE FLUID: None. ADDITIONAL FINDINGS: None. IMPRESSION: 1. 3-4 mm cystic intrauterine focus possibly representing a gestational sac. Recommend correlation wi th serial beta hCG and short-term follow-up ultrasound in 7-14 days for further evaluation. Signer Name: Isac Carnes MD Signed: 02/03/2021 6:17 PM Workstation Name: [id number]
== END 2021-02-03 18:39 | disposition home or self-care (01) ==
LOC: ED 14:56
DX: O23.41 Unspecified infection of urinary tract in pregnancy, first trimester (principal); O26.891 Other specified pregnancy related conditions, first trimester; R10.30 Lower abdominal pain, unspecified; M54.5 Low back pain; O02.81 Inappropriate change in quantitative human chorionic gonadotropin (hCG) in early pregnancy; Z98.890 Other specified postprocedural states; Z3A.01 Less than 8 weeks gestation of pregnancy
CPT/HCPCS: 36415; 76801; 76817; 80053; 81001; 83690; 84702; 85025; 87076; 87086; 87186; 99284